=== PATIENT | female | born 2005 | race Caucasian/White ===

== ENCOUNTER 2024-07-03 11:51 | Inpatient (IN) ==
[2024-07-03] MEDS ORDERED: Al Hydrox/Mg Hydrox/Simet LIQ 30 ML UDC PO PRN (12:47)
[2024-07-03] MEDS ORDERED: Lorazepam PYXIS KEY PRN (16:47)
[2024-07-03] MEDS: OLANZapine 5 mg TAB *ODT PO SCH (20:30)
[2024-07-04 08:51] LABS: HDL Cholesterol 42.2 mg/dL
[2024-07-04] MEDS: OLANZapine 5 mg TAB *ODT PO PRN (08:52)
[2024-07-04 17:34] LABS: Urine Appearance Clear; Urine Bilirubin Negative (Negative); Urine Blood Trace (Negative); Urine Color Light-Yellow; Urine Glucose Negative (Negative); Urine Ketones Negative (Negative); Urine Nitrite Negative (Negative); Urine Protein Negative (Negative); Urine Specific Gravity 1.015 (1.002-1.030); Urine Urobilinogen 1+ (Negative); Urine pH 7.5 (5.0-8.0)
[2024-07-04 17:35] LABS: Urine Bacteria Absent /HPF (Absent); Urine Red Blood Cell Trace(0-2/hpf) /HPF (0-Trace); Urine Squamous Epithelial Cell Present /HPF (Absent); Urine White Blood Cell Trace(0-5/hpf) /HPF (0-Trace)
[2024-07-06] MEDS: OLANZapine 5 mg TAB *ODT PO SCH (21:15)
[2024-07-07] MEDS: OLANZapine 5 mg TAB *ODT PO PRN (01:22)
[2024-07-09] MEDS: OLANZapine 10 mg TAB*ODT PO SCH (20:18)
[2024-07-09] MEDS: Hemorrhoidal OINT 1 TUBE PR PRN (20:19)
== END 2024-07-11 13:40 | disposition home or self-care (01) | DRG 751 ==
LOC: BSU 14:25
PROVIDERS: ADMIT Psychiatry & Neurology Psychiatry; ATTEND Psychiatry & Neurology Psychiatry

== ENCOUNTER 2024-08-17 16:23 | Inpatient (IN) ==
[2024-08-17 19:13] LABS: ABS Eosinophils 0.1 10^3/uL (0.0-0.5); ABS Lymphocytes 2.3 10^3/uL (1.0-4.8); ABS Monocytes 0.5 10^3/uL (0.0-0.9); ABS Neutrophils 5.2 10^3/uL (1.5-7.6); Eosinophil % 0.9 %; Hematocrit 36.2 % (35-45); Hemoglobin 12.3 g/dL (11.5-14.3); Lymphocyte % 28.4 %; Mean Corpuscular Hemoglobin 27.1 pg (27-33); Mean Corpuscular Volume 79.7 fL (80-97); Mean Platelet Volume 7.5 fL (7.5-11.2); Platelet Count 332 10^3/uL (150-450); Red Blood Count 4.54 10^6/uL (3.63-4.92); Red Cell Distribution Width 17.4 % (12-17); White Blood Count 8.1 10^3/uL (3.8-11.8)
[2024-08-17 19:55] LABS: ALT 24 U/L (7-52); AST 12 U/L (13-39); Acetaminophen < 15 mcg/mL; Albumin 4.5 g/dL (3.2-5.2); Albumin/Globulin Ratio 1.6 (1-3); Alcohol, S < 13 mg/dL (<13); Alkaline Phosphatase 75 U/L (35-149); Anion Gap 8 mmol/L (2-16); Blood Urea Nitrogen 11 mg/dL (6-24); CO2 Carbon Dioxide 24 mmol/L (22-32); Calcium 9.8 mg/dL (8.6-10.3); Chloride 104 mmol/L (101-111); Creatinine, Serum 0.66 mg/dL (0.51-0.95); Globulin 2.9 g/dL (2-4); Glucose 90 mg/dL (70-100); Potassium 3.9 mmol/L (3.5-5.0); Salicylate < 2.50 mg/dL (<30); Sodium 136 mmol/L (135-145); Total Bilirubin 0.9 mg/dL (0.2-1.0); Total Protein 7.4 g/dL (6.4-8.9); eGFR CKD-EPI 128.7 (>60)
[2024-08-17 20:01] LABS: HCG Pregnancy < 0.60 mIU/mL
[2024-08-17 21:57] LABS: Urine Appearance Turbid; Urine Bilirubin Negative (Negative); Urine Blood Negative (Negative); Urine Color Light-Yellow; Urine Glucose Negative (Negative); Urine Ketones Negative (Negative); Urine Nitrite Negative (Negative); Urine Protein Negative (Negative); Urine Specific Gravity 1.006 (1.002-1.030); Urine Urobilinogen Negative (Negative); Urine pH 6.5 (5.0-8.0)
[2024-08-17 22:03] LABS: Urine Bacteria 1+ /HPF (Absent); Urine Red Blood Cell 1+(3-5/hpf) /HPF (0-Trace); Urine Squamous Epithelial Cell Present /HPF (Absent); Urine White Blood Cell 3+(>20/hpf) /HPF (0-Trace)
[2024-08-17 22:11] LABS: Urine Benzodiazepine Screen None Detected (None Detect); Urine Cannabinoids Screen None Detected (None Detect); Urine Opiates Screen None Detected (None Detect)
[2024-08-20] MEDS ORDERED: Al Hydrox/Mg Hydrox/Simet LIQ 30 ML UDC PO PRN (12:09)
[2024-08-21] MEDS: Vitamin THERAPEUTIC TAB PO SCH (08:27)
[2024-08-21] MEDS: OLANZapine 5 mg TAB *ODT PO PRN (20:01)
[2024-08-23 20:08] LABS: C Reactive Protein 4.61 mg/L (<8.01)
[2024-08-23 20:18] LABS: TSH Ultra Thyroid Stim Horm 0.86 mcIU/mL (0.34-5.60)
[2024-08-23 20:29] LABS: Folate 16.35 ng/mL (5.90-24.80)
[2024-08-28] MEDS: Cyanocobalamin INJ 1,000 MCG/ML VIAL 1 ML VIAL IM SCH (15:40)
[2024-08-31] MEDS: Paliperidone SUSTENNA 156 MG/1 ML IM ONE (12:01)
[2024-08-31] MEDS: Paliperidone SUSTENNA 234 MG/1.5 ML IM ONE (12:01)
[2024-08-31] MEDS: Permethrin 1% LOTION 59 ML BTL TOPICAL ONE (17:22)
[2024-09-01 23:03] LABS: Urine Appearance Clear; Urine Bilirubin Negative (Negative); Urine Blood Negative (Negative); Urine Color Light-Yellow; Urine Glucose Negative (Negative); Urine Ketones Negative (Negative); Urine Nitrite Negative (Negative); Urine Protein Negative (Negative); Urine Specific Gravity 1.014 (1.002-1.030); Urine Urobilinogen Negative (Negative); Urine pH 6.5 (5.0-8.0)
[2024-09-01 23:04] LABS: Urine Bacteria Absent /HPF (Absent); Urine Red Blood Cell Trace(0-2/hpf) /HPF (0-Trace); Urine Squamous Epithelial Cell Present /HPF (Absent); Urine White Blood Cell Trace(0-5/hpf) /HPF (0-Trace)
[2024-09-03] MEDS ORDERED: Permethrin 1% LOTION 59 ML BTL TOPICAL ONE (09:00)
[2024-09-03] MEDS: Paliperidone SUSTENNA 234 MG/1.5 ML IM ONE (09:15)
[2024-09-03] MEDS: Permethrin 5% CREAM 1 TUBE TOPICAL ONE (10:54)
[2024-09-03] MEDS: Dimethicone Lice Treatment 118 ML TOP.LOTION TOPICAL ONE (10:58)
[2024-09-04 09:31] VITALS: BP 104/68
== END 2024-09-04 15:45 | disposition home or self-care (01) | DRG 751 ==
LOC: ED 16:23 → EDHOLD 08-20 12:09 → BSU 08-20 15:07
PROVIDERS: ADMIT Psychiatry & Neurology Psychiatry; ATTEND Psychiatry & Neurology Psychiatry